=== PATIENT | male | born 1955 | race Caucasian/White ===

== ENCOUNTER 2024-06-25 09:46 | Observation (INO) ==
[2024-06-25 12:54] LABS: Hemoglobin 7.5 g/dl (14.0-18.0); Mean Corpuscular Hemoglobin 26.6 pg (25.0-34.0); Mean Corpuscular Hgb Conc 31.3 g/dL (32.0-36.0); Mean Corpuscular Volume 85.1 fL (80.0-100.0); Nucleated RBC # (auto) 0.14 K/uL (0.00-0.12); Nucleated RBC % (auto) 0.7 %; Platelet Count 96 K/uL (130-400); RDW Coefficient of Variation 19.5 % (11.5-14.5); RDW Standard Deviation 58.1 fL (36.4-46.3); Red Blood Count 2.82 M/uL (4.70-6.10); White Blood Count 18.74 K/ul (4.8-10.8)
[2024-06-25 13:10] LABS: Anisocytosis Present; Basophils # (auto) 0.04 K/uL (0.00-0.20); Basophils % (auto) 0.2 %; Dohle Bodies 1+; Eosinophils # (auto) 0.01 K/uL (0.00-0.50); Eosinophils % (auto) 0.1 %; Hypochromasia Present; Immature Granulocytes # (auto) 0.61 K/uL (0.01-0.20); Immature Granulocytes % (auto) 3.3 %; Lymphocytes # (auto) 1.32 K/uL (1.20-3.40); Monocytes # (auto) 1.23 K/uL (0.11-0.59); Monocytes % (auto) 6.6 %; Neutrophils # (auto) 15.53 K/uL (1.40-6.50); Neutrophils % (auto) 82.8 %; Polychromasia 1+; Schistocytes 1+
[2024-06-25] MEDS ORDERED: SODIUM CHLORIDE 0.9% 100 ML IV PRN ×2 (13:31→21:29)
[2024-06-25] MEDS ORDERED: SODIUM CHLORIDE 0.9% 50 ML IV PRN ×2 (13:31→21:29)
--- NOTE | 2024-06-25 13:52 | History & Physical Report ---
Date of Service June 25, 2024 Assessment & Plan (1) Recurrent epistaxis: (2) Acute blood loss anemia: (3) Esophageal cancer: (4) Atrial fibrillation with RVR: Tyson Green is a 68-year-old male with PMH of recurrent epistaxis, COPD, and esophageal cancer. He presented on 06/25 for ongoing nosebleed that originally started on Sunday 06/18. He was seen at [facility] that Tuesday 06/20 and had a Rhino Rocket placed, he was then seen by ENT on Thursday 06/22 and had silver nitrate without it stopping. Patient was fine over the weekend, however he sneezed upon waking this morning, and nosebleed returned. #Epistaxis/acute blood loss anemia Right nasal passage was packed in the ED, and patient reports he is no active bleeding at time of admission Augmentin x 1 given in the ED Hgb 7.5 on arrival 1 unit PRBCs ordered, transfused Trend H&H Otolaryngology consult appreciated #Leukocytosis WBC count elevated to 18.74 on arrival Clinically, patient denies infectious symptoms Suspect this is due to recent Neulasta Continue to trend #Esophageal cancer Patient follows with [facility] Last chemo on 06/12, per patient Oncology consult appreciated #New onset A-fib with RVR TSH and Mag ordered, pending Echocardiogram ordered, pending Metoprolol 5 mg IV on-call PRN for HR >130bpm Continue home metoprolol Note: Patient reports that he has been taking 25 mg daily, despite being told to take half tablets (12.5 mg) daily Hold metoprolol succinate for now Metoprolol tartrate 25mg p.o. q6h for now Will defer blood thinners in the setting of acute blood loss anemia Continuous telemetry monitoring #Tobacco use Current everyday tobacco cigarette smoker; 1 PPD Nicotine patch while inpatient Disposition: Admit to PCU telemetry Full code Regular diet VTE PPx: SCDs; hold chemical DVT PPx in the setting of acute blood loss anemia/nosebleed History of Present Illness Chief Complaint: Nosebleed Primary Care Provider: Lauri López MD Peter is a 68-year-old male with PMH of recurrent epistaxis, COPD, and esophageal cancer. He presented on 06/25 for ongoing nosebleed that originally started on Sunday 06/18. He was seen at [facility] that Tuesday 06/20 and had a Rhino Rocket placed, he was then seen by ENT on Thursday 06/22 and had silver nitrate without it stopping. Patient was fine over the weekend, however he sneezed upon waking this morning, and nosebleed returned. In terms of symptoms, he endorses a "pounding" headache secondary to the nosebleed, as well as dizziness when walking around. [facility] and is currently undergoing chemotherapy for his esophageal cancer; he reports his last chemotherapy session was on 06/12. Patient did not take his regular morning medicine today; no recent change in medications. He manages his own medicine at home. He takes tramadol and gabapentin daily for lower back pain and ankle pain secondary to rheumatoid arthritis. He does have a history of blood transfusion in March 2023. He is not currently on blood thinners. He has been told he had an "irregular" heartbeat in the past, but is unsure if he has any history of atrial fibrillation. No PMH of GI bleeds or bleeding disorders to his knowledge. Patient is a former [employer]. He is a current everyday tobacco cigarette smoker; 1 PPD. He denies chewing tobacco or recent alcohol use. Patient is tachycardic at 125 bpm at time admission; vitals o therwise stable. ED course: 1 unit PRBCs ordered for transfusion NSS 100 mL IV ROS: Patient endorses nosebleed, dizziness, cold intolerance, headache, and melena. Patient denies fever, chills, night-sweats, rashes, bruises, chest pain, chest palpitations, SOB, pleuritic CP, abdominal pain, N/V, burning with urination, or BRB in the urine/stool. Allergies Allergy/AdvReac Type Severity Reaction Status Date / Time No Known Drug Allergies Allergy Verified 06/25/24 14:47 Home Medications Medication Instructions Recorded Confirmed Type alfuzosin 10 mg tablet,extended 0 mg PO BID 02/17/24 06/25/24 History release 24 hr ferrous sulfate 325 mg (65 mg 325 mg PO DAILY 02/17/24 06/25/24 History iron) tablet (Iron (ferrous sulfate)) metoprolol succinate 25 mg 0 mg PO QAM 02/17/24 06/25/24 History tablet,extended release 24 hr prednisone 2.5 mg tablet 2.5 - 5 mg PO UD 02/17/24 06/25/24 History tadalafil 10 mg tablet 10 mg PO HS 02/17/24 06/25/24 History tenofovir disoproxil fumarate 300 300 mg PO HS 02/17/24 06/25/24 History mg tablet tizanidine 6 mg capsule 6 mg PO TID PRN muscle spasms 02/17/24 06/25/24 History tramadol 50 mg tablet 50 mg PO Q6H PRN Pain 02/17/24 06/25/24 History folic acid 1 mg tablet 1 mg PO DAILY 05/02/24 06/25/24 History cholecalciferol (vitamin D3) 25 25 mcg PO DAILY 06/25/24 06/25/24 History mcg (1,000 unit) tablet (Vitamin D3) lorazepam 0.5 mg tablet 0.25 - 5 mg PO Q6H PRN 06/25/24 06/25/24 History Anxiety/Panic/Insomnia ondansetron HCl 8 mg tablet 8 mg PO TID PRN Nausea And Vomiting 06/25/24 06/25/24 History sertraline 50 mg tablet 50 mg PO DAILY 06/25/24 06/25/24 History Past Med/Surg History Problem List (Updated 06/25/24 @ 18:33 by Reuben Hagan MD) Atrial fibrillation with RVR (Acute) Acute blood loss anemia (Acute) Recurrent epistaxis (Acute) Smoker Stage 3 severe COPD by GOLD classification Back problem Esophageal cancer (Acute) Medical History Esophageal cancer reccurence Degenerative joint disease of knee, left History of hepatitis B (2019) Hx of hepatitis C (2019) treated and cleared Chronic back pain 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 BPH (benign prostatic hyperplasia) COPD (chronic obstructive pulmonary disease) "extremely mild" no symptoms Hx of esophageal malignancy (2022) 3 rounds of chemo, and 4-5 weeks of xrt Cardiac arrhythmia no symptoms, unsure of what type, no inhalation therapy aide- had stress test Hypertension Psoriatic arthritis Rheumatoid arthritis Surgical History Port-A-Cath in place (05/08/24) Access Port Insertion Left Subclavian with Fluoroscopy(Left) - Antonio Hylton, DO Spermatocele (2018) Hx of esophagogastroduodenoscopy 02/2024 [facility] Hx of colonoscopy (2022) History of surgery (2019) spermatocele removed, [facility] surgeon "botched" surgery and complications post op including extreme scrotal swelling Hx of removal of cyst fatty cyst at ear canal Hx of shoulder surgery (1970) left arm, while in service Hx of appendectomy (1967) age 12, " on the operating table- addendix burst while they were doing the surgery" required a return to surgery 2 weeks later Family History Sister Breast cancer Brother Cancer Pancreatic cancer Grandmother Colorectal cancer Social History Smoking Status: Current every day smoker Tobacco Type: Cigarettes Cigarettes Per Day: 1 ppd (advised); Second Hand Exposure: Yes; Do You Dip or Chew Tobacco: No; Tobacco Cessation Education Requested by Patient: No 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) Hx Substance Use: Yes Last Used Substance: Days (ago) Last Used Substance Other:: Marijuana Substance Use Type Other:: still uses marijuana Preferred Language: Micronesian Communication Ability: Effective Cake Decorator Required: No Beliefs That Will Affect Care: None marital status: Current Living Situation: Spouse current occupational status: retired and disabled How many Children do You have: 3 Other Information That Helps Us Care for You: No Feels Safe at Home: Yes Safety Concerns: Feels Safe At This Time during the past year weight has: decreased > 10 lbs Assistive Devices: Cane Review of Systems Review of Systems: See HPI above Physical Exam Physical Exam: General: no acute distress; at bedside; non-toxic appearing; cachectic; SpO2 98% on RA HEENT: normocephalic, atraumatic; no scleral icterus; PERRLA; vision and hearing grossly intact Nose: Nasal packing in place with dried blood noted Neck: supple; no lymphadenopathy; trachea midline Skin: warm, dry without signs of tenting; no cyanosis; no rashes, bruising, lesions, or erythema noted CV: chest wall NTP; irregularly irregular rhythm at 130 bpm; S1/S2 normal; no murmurs/rubs/gallops; pulses intact and symmetric at radial, DP, and PT Lungs: no acute respiratory distress; symmetrical chest wall expansion; mild expiratory wheeze in the lower lung peres bilaterally ABD: Soft, NTP; BS present; no rebound/guarding; no distention MSK: no tics or fasciculations; no edema noted in the LEs b/l, nonerythematous Neuro: A&Ox3; normal mood and affect; fluent speech; no focal deficits; sensation grossly intact in the LEs b/l Results & Data Results & Data Vital Signs (Past 12 Hours) Vital Signs Temp Pulse Resp BP Pulse Ox O2 Del Method 06/25/24 09:58 36.5 C 125 H 24 108/69 98 Room Air Laboratory Results Abnormal lab results 06/25/24 Range/Units 12:24 WBC 18.74 H (4.8-10.8) K/ul RBC 2.82 L (4.70-6.10) M/uL Hgb 7.5 L (14.0-18.0) g/dl Hct 24.0 L (42.0-52.0) % MCHC 31.3 L (32.0-36.0) g/dL RDW Std Deviation 58.1 H (36.4-46.3) fL RDW Coeff of Latha 19.5 H (11.5-14.5) % Plt Count 96 L (130-400) K/uL Neut # (Auto) 15.53 H (1.40-6.50) K/uL Owsley # (Auto) 1.23 H (0.11-0.59) K/uL Immature Gran # (Auto) 0.61 H (0.01-0.20) K/uL Absolute Nucleated RBC 0.14 H (0.00-0.12) K/uL Code Status & VTE Plan Code Status Full code VTE Prophylaxis Plan VTE Prophylaxis will be ordered: Yes Supervising Physician Co-Signing Physician Notes I personally saw and examined the patient. I independently reviewed the labs, EKG, imaging, problem list, medication list, past medical history and family history. I verified all laguerre points and agree with Dylan Ward PA-C with the following exceptions and/or additions: 68 year old male presents to the ER with a nose bleed, recurrent after prior cauterization as outpatient O/E HS irregular rhythm, increased rate, no murmur, Chest CTAB, Abdo SNT, rhinorocket in nose A/P New onset a. fib RVR - TTE, TSH, aim Mg > 2, K > 4, increase metoprolol to 25mg PO q6h, patient still significantly tachycardic following this as BP 98/60 therefore started on digoxin 250mcg IV q6h for three doses followed by 125mcg PO daily, unable to anticoagulate due to epistaxis Epistaxis - consult ENT, given his chemotherapy and symptomatic would aim for hemoglobin higher than usual > 8 PG Care Time/CCT Total # of Minutes Spent Total Time Spent with Patient: Total time spent is greater than 50% in coordination of care (as documented) at patient's floor/unit and/or counseling patient: Coding [place] [address] INT INP/OBS CARE 3/75MIN Patient Type Established Medical Decision Making High Complexity Diagnoses Recurrent epistaxis R04.0 Acute blood loss anemia D62 Esophageal cancer C15.9 Atrial fibrillation with RVR I48.91
[2024-06-25] MEDS: METOPROLOL TARTRATE 1 MG/ML VIAL IV STA ×2 (13:59→16:23)
[2024-06-25] MEDS: AMOXICILLIN/CLAVULANATE 875 MG TAB PO ONE (15:10)
[2024-06-25 15:21] LABS: INR 1.1 (0.9-1.1); Partial Thromboplastin Time 28 Seconds (21-31); Prothrombin Time 12.1 Seconds (9.0-12.0)
[2024-06-25] MEDS ORDERED: ACETAMINOPHEN 325 MG TAB PO PRN (15:34)
[2024-06-25] MEDS ORDERED: ONDANSETRON INJ 2 MG/ML 2 ML VIAL IV PRN (15:34)
[2024-06-25] MEDS: traMADol HCL 50 MG TABLET PO PRN (16:03)
[2024-06-25] MEDS: METOPROLOL TARTRATE 1 MG/ML VIAL IV PRN (16:05)
--- NOTE | 2024-06-25 16:40 | Oncology Consultation ---
Date of Consultation June 25, 2024 Assessment & Plan (1) Acute blood loss anemia: (2) Recurrent epistaxis: (3) Atrial fibrillation with RVR: Plan -Anemia likely multifactorial due to chemotherapy treatment as well as epistaxis. Will obtain anemia labs including iron studies, B12, folate level to evaluate for nutritional causes -Transfuse with 1 unit PRBC -Epistaxis management per ENT -Outpatient follow-up upon discharge from hospital. Will discuss at that time if patient wants to continue with systemic therapy Thank you for this consult. Oncology will follow peripherally. Please feel free to call if you have any further questions. History of Present Illness Reason for Consultation: Anemia, esophageal cancer Attending Physician: Brent Stewart MD History of Present Illness 68-year-old gentleman with metastatic esophageal cancer currently on FOLFOX plus trastuzumab admitted to [facility] for anemia after presenting to the ER with epistaxis. Labs revealed hemoglobin of 7.5 with hematocrit of 24.0. Has had recurrent epistaxis and underwent nasal cautery on 06/21/2024. Allergies Allergy/AdvReac Type Severity Reaction Status Date / Time No Known Drug Allergies Allergy Verified 06/25/24 14:47 Home Medications Medication Instructions Recorded Confirmed Type alfuzosin 10 mg tablet,extended 0 mg PO BID 02/17/24 06/25/24 History release 24 hr ferrous sulfate 325 mg (65 mg 325 mg PO DAILY 02/17/24 06/25/24 History iron) tablet (Iron (ferrous sulfate)) metoprolol succinate 25 mg 0 mg PO QAM 02/17/24 06/25/24 History tablet,extended release 24 hr prednisone 2.5 mg tablet 2.5 - 5 mg PO UD 02/17/24 06/25/24 History tadalafil 10 mg tablet 10 mg PO HS 02/17/24 06/25/24 History tenofovir disoproxil fumarate 300 300 mg PO HS 02/17/24 06/25/24 History mg tablet tizanidine 6 mg capsule 6 mg PO TID PRN muscle spasms 02/17/24 06/25/24 History tramadol 50 mg tablet 50 mg PO Q6H PRN Pain 02/17/24 06/25/24 History folic acid 1 mg tablet 1 mg PO DAILY 05/02/24 06/25/24 History cholecalciferol (vitamin D3) 25 25 mcg PO DAILY 06/25/24 06/25/24 History mcg (1,000 unit) tablet (Vitamin D3) lorazepam 0.5 mg tablet 0.25 - 5 mg PO Q6H PRN 06/25/24 06/25/24 History Anxiety/Panic/Insomnia ondansetron HCl 8 mg tablet 8 mg PO TID PRN Nausea And Vomiting 06/25/24 06/25/24 History sertraline 50 mg tablet 50 mg PO DAILY 06/25/24 06/25/24 History Patient History Medical History (Updated 06/25/24 @ 14:25 by Dylan Ward PA-C) Esophageal cancer reccurence Degenerative joint disease of knee, left History of hepatitis B (2019) Hx of hepatitis C (2019) treated and cleared Chronic back pain 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 BPH (benign prostatic hyperplasia) COPD (chronic obstructive pulmonary disease) "extremely mild" no symptoms Hx of esophageal malignancy (2022) 3 rounds of chemo, and 4-5 weeks of xrt Cardiac arrhythmia no symptoms, unsure of what type, no real estate assessor- had stress test Hypertension Psoriatic arthritis Rheumatoid arthritis Surgical History (Updated 05/08/24 @ 10:41 by Elana Enriquez RN) Port-A-Cath in place (05/08/24) Access Port Insertion Left Subclavian with Fluoroscopy(Left) - Antonio Hylton, Spermatocele (2018) Hx of esophagogastroduodenoscopy 02/2024 [facility] Hx of colonoscopy (2022) History of surgery (2019) spermatocele removed, [facility] surgeon "botched" surgery and complications post op including extreme scrotal swelling Hx of removal of cyst fatty cyst at ear canal Hx of shoulder surgery (1970) left arm, while in service Hx of appendectomy (1967) age 12, " on the operating table- addendix burst while they were doing the surgery" required a return to surgery 2 weeks later Family History Sister Breast cancer Brother Cancer Pancreatic cancer Grandmother Colorectal cancer Social History Smoking Status: Current every day smoker Tobacco Type: Cigarettes Cigarettes Per Day: 1 ppd (advised); Second Hand Exposure: Yes; Do You Dip or Chew Tobacco: No; Tobacco Cessation Education Requested by Patient: No 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) Hx Substance Use: Yes Last Used Substance: Days (ago) Last Used Substance Other:: Marijuana Substance Use Type Other:: still uses marijuana Preferred Language: Croatian Communication Ability: Effective Chief Cardiopulmonary Technologist Required: No Beliefs That Will Affect Care: None marital status: Current Living Situation: Spouse current occupational status: retired and disabled How many Children do You have: 3 Other Information That Helps Us Care for You: No Feels Safe at Home: Yes Safety Concerns: Feels Safe At This Time during the past year weight has: decreased > 10 lbs Assistive Devices: Cane Results & Data Vital Signs (Past 12 Hours) Vital Signs Temp Pulse Pulse Resp BP BP Pulse Ox 06/25/24 16:24 36.4 C L 141 H 16 109/61 91 06/25/24 16:23 141 H 109/61 06/25/24 16:05 163 H 118/70 06/25/24 15:35 36.7 C 92 H 18 118/70 96 06/25/24 14:30 125 H 24 123/79 96 06/25/24 13:59 142 H 132/111 H 06/25/24 13:56 159 H 06/25/24 13:46 169 H 26 H 113/71 98 06/25/24 09:58 36.5 C 125 H 24 108/69 98 O2 Del Method 06/25/24 16:24 06/25/24 16:23 06/25/24 16:05 06/25/24 15:35 Room Air 06/25/24 14:30 Room Air 06/25/24 13:59 06/25/24 13:56 06/25/24 13:46 Room Air 06/25/24 09:58 Room Air
[2024-06-25 16:42] LABS: Magnesium 1.9 mg/dl (1.7-2.4)
[2024-06-25] MEDS: METOPROLOL SUCC 25MG EXT REL TAB PO SCH (16:55)
[2024-06-25 17:05] LABS: Thyroid Stimulating Hormone 1.286 uIu/ml (0.300-4.500)
[2024-06-25] MEDS: METOPROLOL TARTRATE 25 MG TAB PO SCH (17:07)
--- NOTE | 2024-06-25 18:33 | Emergency Department Note ---
History of Present Illness General Chief complaint: Nose Bleed (Minor) Stated complaint: NOSE BLEED Time Seen by Provider: 06/25/24 11:03 History of Present Illness Provider Complaint: + epistaxis Location: + right nostril Onset (ago): 1 day(s) Duration: + constant Maximum Pain Intensity: 8 Context: + history of previous Associated symptoms: no fever, no headache or no sinus pain Treatment prior to arrival: + stuffed nose with tissue HPI Narrative: Patient states that he was seen at [facility] and stayed overnight but they wanted to send him to [place] so he left. Patient states he saw ENT in the clinic at [facility] and had a cauterization done with silver nitrate. Patient states that did not help and he started bleeding and today and is requesting that a "laser be used to stop the bleeding". Patient is currently on chemotherapy through [facility] oncology. Home Medications Medication Instructions Recorded Confirmed Type alfuzosin 10 mg tablet,extended 0 mg PO BID 02/17/24 06/25/24 History release 24 hr ferrous sulfate 325 mg (65 mg 325 mg PO DAILY 02/17/24 06/25/24 History iron) tablet (Iron (ferrous sulfate)) metoprolol succinate 25 mg 0 mg PO QAM 02/17/24 06/25/24 History tablet,extended release 24 hr prednisone 2.5 mg tablet 2.5 - 5 mg PO UD 02/17/24 06/25/24 History tadalafil 10 mg tablet 10 mg PO HS 02/17/24 06/25/24 History tenofovir disoproxil fumarate 300 300 mg PO HS 02/17/24 06/25/24 History mg tablet tizanidine 6 mg capsule 6 mg PO TID PRN muscle spasms 02/17/24 06/25/24 History tramadol 50 mg tablet 50 mg PO Q6H PRN Pain 02/17/24 06/25/24 History folic acid 1 mg tablet 1 mg PO DAILY 05/02/24 06/25/24 History cholecalciferol (vitamin D3) 25 25 mcg PO DAILY 06/25/24 06/25/24 History mcg (1,000 unit) tablet (Vitamin D3) lorazepam 0.5 mg tablet 0.25 - 5 mg PO Q6H PRN 06/25/24 06/25/24 History Anxiety/Panic/Insomnia ondansetron HCl 8 mg tablet 8 mg PO TID PRN Nausea And Vomiting 06/25/24 06/25/24 History sertraline 50 mg tablet 50 mg PO DAILY 06/25/24 06/25/24 History Allergies Allergy/AdvReac Type Severity Reaction Status Date / Time No Known Drug Allergies Allergy Verified 06/25/24 14:47 Past Med/Surg History Problem List (Updated 06/25/24 @ 18:33 by Reuben Hagan MD) Atrial fibrillation with RVR (Acute) Acute blood loss anemia (Acute) Recurrent epistaxis (Acute) Smoker Stage 3 severe COPD by GOLD classification Back problem Esophageal cancer (Acute) Medical History Esophageal cancer reccurence Degenerative joint disease of knee, left History of hepatitis B (2019) Hx of hepatitis C (2019) treated and cleared Chronic back pain 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 BPH (benign prostatic hyperplasia) COPD (chronic obstructive pulmonary disease) "extremely mild" no symptoms Hx of esophageal malignancy (2022) 3 rounds of chemo, and 4-5 weeks of xrt Cardiac arrhythmia no symptoms, unsure of what type, 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 Hypertension Psoriatic arthritis Rheumatoid arthritis Surgical History Port-A-Cath in place (05/08/24) Access Port Insertion Left Subclavian with Fluoroscopy(Left) - Antonio Hylton, Spermatocele (2018) Hx of esophagogastroduodenoscopy 02/2024 [facility] Hx of colonoscopy (2022) History of surgery (2019) spermatocele removed, [facility] surgeon "botched" surgery and complications post op including extreme scrotal swelling Hx of removal of cyst fatty cyst at ear canal Hx of shoulder surgery (1970) left arm, while in service Hx of appendectomy (1967) age 12, " on the operating table- addendix burst while they were doing the surgery" required a return to surgery 2 weeks later Family History Sister Breast cancer Brother Cancer Pancreatic cancer Grandmother Colorectal cancer Social History Smoking Status: Current every day smoker Tobacco Type: Cigarettes Cigarettes Per Day: 1 ppd (advised); Second Hand Exposure: Yes; Do You Dip or Chew Tobacco: No; Tobacco Cessation Education Requested by Patient: No 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) Hx Substance Use: Yes Last Used Substance: Days (ago) Last Used Substance Other:: Marijuana Substance Use Type Other:: still uses marijuana Preferred Language: Sri Lankan Communication Ability: Effective 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 Beliefs That Will Affect Care: None marital status: Current Living Situation: Spouse current occupational status: retired and disabled How many Children do You have: 3 Other Information That Helps Us Care for You: No Feels Safe at Home: Yes Safety Concerns: Feels Safe At This Time during the past year weight has: decreased > 10 lbs Assistive Devices: Cane Physical Exam 2 Vital Signs: Vital Signs - 24 hr 06/25/24 09:58 06/25/24 13:46 06/25/24 13:56 Temperature 36.5 C Temperature Source Oral Pulse Rate 125 H 159 H Pulse Rate [Apical ] 169 H Pulse Rhythm [Apic al] Irregular Pulse Strength [Ap ical] Normal Respiratory Rate 24 26 H Respiratory Effort / Characteristics Labored Respiratory Depth Shallow Respiratory Patter n Tachypnea Blood Pressure 108/69 Blood Pressure [Ri ght Arm] 113/71 Blood Pressure Rubia n 82 Blood Pressure Rubia n [Right Arm] 85 Blood Pressure Pos ition Sitting Blood Pressure Pos ition [Right Arm] Lying Pulse Oximetry 98 98 Oxygen Delivery Me thod Room Air Room Air Sepsis Recent Feve r Within 48 Hours No Sepsis New/Unexpla ined Change in Men danelle Status No Sepsis Action Take n by Nursing No Action Required 06/25/24 13:59 Temperature Temperature Source Pulse Rate 142 H Pulse Rate [Apical ] Pulse Rhythm [Apic al] Pulse Strength [Ap ical] Respiratory Rate Respiratory Effort / Characteristics Respiratory Depth Respiratory Patter n Blood Pressure 132/111 H Blood Pressure [Ri ght Arm] Blood Pressure Rubia n Blood Pressure Rubia n [Right Arm] Blood Pressure Pos ition Blood Pressure Pos ition [Right Arm] Pulse Oximetry Oxygen Delivery Me thod Sepsis Recent Feve r Within 48 Hours Sepsis New/Unexpla ined Change in Men danelle Status Sepsis Action Take n by Nursing Physical Exam: Physical Exam HENT: Exam performed. - Head: Normocephalic and atraumatic. - Right Ear: External ear normal. No mastoid erythema - Left Ear: External ear normal. No mastoid erythema - Nose: Bleeding from the right nare. - Mouth/Throat: The oropharynx is clear and moist. No trismus in the jaw. No dental abscesses or uvula swelling. No oropharyngeal exudate or tonsillar abscesses. No blood in the oropharynx. EYES: Conjunctivae and EOM are normal. Pupils are equal, round, and reactive to light. Right eye exhibits no discharge. Left eye exhibits no discharge. No scleral icterus. CV: Normal rate, irregular rhythm, normal heart sounds and intact distal pulses. There is no peripheral edema. Palpable radial pulses bue. PULM/CHEST: Effort normal and breath sounds normal. No respiratory distress. No stridor. He has no wheezes. He has no rales. NEURO: He is alert and oriented to person, place, and time. He has normal strength. No cranial nerve deficit or sensory deficit. Coordination and gait normal. GCS eye subscore is 4. GCS verbal subscore is 5. GCS motor subscore is 6. Cerebellar tests wnl. Procedures Epistaxis Control Nostril: right Direct Inspection: yes Clots Removed by: blowing nose Device Inserted: hemostatic balloon Patient Tolerated Procedure: well and no complications Course Course 1103: The patient was evaluated in room D3. A complete history and physical exam was performed Cardiac monitoring: An order was placed for continuous cardiac monitoring. The monitor shows a rate of 100 with atrial fibrilation rhythm interpreted by me 1225: Vital signs stable. Patient's epistaxis was stopped with Rhino Rocket insertion. See procedure note. Will check labs. 1400: Patient became tachycardic in the emergency department. Patient found to be in A-fib RVR. Patient states he did not take his home dose of metoprolol this morning. IV metoprolol ordered for the patient. Patient's labs show hemoglobin 7.5. Leukocytosis of 18. Discussed case with Dr. Cox patient's oncologist. States patient should be transfused 1 unit packed red blood cells. She states her leukocytosis is due to recent Lunesta administration. Dr. Jackson on-call ENT agreed to be on consult while the patient was admitted. Administered Medications Metoprolol Tartrate (Metoprolol Tartrate 25 Mg Tab) 25 mg PO Q6 DEVON Stop: 07/25/24 16:44 Last Admin: 06/25/24 17:07 Dose: 25 mg Documented By: FRANCISCA Tramadol HCl (Tramadol Hcl 50 Mg Tablet) 50 mg PO Q6H PRN PRN Reason: Pain Stop: 07/25/24 15:33 Last Admin: 06/25/24 16:03 Dose: 50 mg Documented By: MALENA Discontinued Medications Amoxicillin/Clavulanate Potassium (Amoxicillin/Clavulanate 875 Mg Tab) 1 tab PO NOW ONE; Protocol Stop: 06/25/24 14:54 Last Admin: 06/25/24 15:10 Dose: 1 tab Documented By: RAINE Metoprolol Succinate (Metoprolol Succ 25mg Ext Rel Tab) 25 mg PO QAM DEVON Stop: 06/25/24 20:59 Last Admin: 06/25/24 16:55 Dose: Not Given Documented By: FRANCISCA Metoprolol Tartrate (Metoprolol Tartrate 1 Mg/Ml Vial) 5 mg IV NOW STA Stop: 06/25/24 13:54 Last Admin: 06/25/24 13:59 Dose: 5 mg Documented By: LINDA Metoprolol Tartrate (Metoprolol Tartrate 1 Mg/Ml Vial) 5 mg IV Q6H PRN PRN Reason: A fib w/ RVR >130bpm Last Admin: 06/25/24 16:05 Dose: 5 mg Documented By: MALENA Metoprolol Tartrate (Metoprolol Tartrate 1 Mg/Ml Vial) 5 mg IV NOW STA Stop: 06/25/24 16:19 Last Admin: 06/25/24 16:23 Dose: 5 mg Documented By: FRANCISCA Medical Decision Making Laboratory Data Attestation: I reviewed the patient's lab results. 06/25/24 12:24 Lab Results 06/25/24 Range/Units 12:24 WBC 18.74 H (4.8-10.8) K/ul RBC 2.82 L (4.70-6.10) M/uL Hgb 7.5 L (14.0-18.0) g/dl Hct 24.0 L (42.0-52.0) % MCV 85.1 (80.0-100.0) fL MCH 26.6 (25.0-34.0) pg MCHC 31.3 L (32.0-36.0) g/dL RDW Std Deviation 58.1 H (36.4-46.3) fL RDW Coeff of Latha 19.5 H (11.5-14.5) % Plt Count 96 L (130-400) K/uL Immature Gran % (Auto) 3.3 % Neut % (Auto) 82.8 % Lymph % (Auto) 7.0 % [place] % (Auto) 6.6 % Eos % (Auto) 0.1 % Baso % (Auto) 0.2 % Neut # (Auto) 15.53 H (1.40-6.50) K/uL Lymph # (Auto) 1.32 (1.20-3.40) K/uL [place] # (Auto) 1.23 H (0.11-0.59) K/uL Eos # (Auto) 0.01 (0.00-0.50) K/uL Baso # (Auto) 0.04 (0.00-0.20) K/uL Immature Gran # (Auto) 0.61 H (0.01-0.20) K/uL Absolute Nucleated RBC 0.14 H (0.00-0.12) K/uL Nucleated RBC % (auto) 0.7 % Dohle Bodies 1+ Polychromasia 1+ Hypochromasia Present Anisocytosis Present Schistocytes 1+ ECG Data Attestation: I personally reviewed and interpreted this ECG as follows: Additional Comments: EKG #1 at 1401: Atrial fibrillation with rate 141. QRS and QTc intervals within normal limits. No ST elevation or ST depression. EKG #2 at 1439 status post metoprolol 5 mg IV push: Atrial fibrillation with rate of 118. QRS and QTc intervals within normal limits. No ST elevation or ST depression [facility] Narrative 1103: The patient was evaluated in room D3. A complete history and physical exam was performed Cardiac monitoring: An order was placed for continuous cardiac monitoring. The monitor shows a rate of 100 with atrial fibrilation rhythm interpreted by me 1225: Vital signs stable. Patient's epistaxis was stopped with Rhino Rocket insertion. See procedure note. Will check labs. 1400: Patient became tachycardic in the emergency department. Patient found to be in A-fib RVR. Patient states he did not take his home dose of metoprolol this morning. IV metoprolol ordered for the patient. Patient's labs show hemoglobin 7.5. Leukocytosis of 18. Discussed case with Dr. Cox patient's oncologist. States patient should be transfused 1 unit packed red blood cells. She states her leukocytosis is due to recent Lunesta administration. Dr. Jackson on-call ENT agreed to be on consult while the patient was admitted. Impression & Plan Recurrent epistaxis, Atrial fibrillation with RVR, Acute blood loss anemia, Esophageal cancer Critical Care Time Critical Care Time: Yes Total Critical Care Time: 36 I have personally spent greater than 36 minutes of critical care time in the direct management of this patient. This includes bedside care, interpretation of diagnostic studies, and testing, discussion with consultants, patient, and family members, and other required patient management activities. This 36 minutes is in excess of all separately billable procedures. Discharge Plan Visit Data Chief Complaint: Nose Bleed (Minor) Stated Complaint: NOSE BLEED ED Provider: Reuben Hagan Discharge Problem: Recurrent epistaxis, Atrial fibrillation with RVR, Acute blood loss anemia, Esophageal cancer Patient Disposition: Admitted As Inpatient Discharge Instructions Interventions: ED Discharge Assessment Last Done: 06/25/24 15:06
[2024-06-25] MEDS: DIGOXIN 250 MCG in SYRINGE 9 ML IV STA (18:40)
[2024-06-25 19:11] LABS: BUN Creatinine Ratio 18.9 (10-20); Bilirubin,Total 0.5 mg/dl (0.2-1.0); Calcium 7.7 mg/dl (8.6-10.3); Creatinine Clr Calc Pharmacy 71.4 ml/min
[2024-06-25 19:31] LABS: Ferritin 678.5 ng/ml (8-388)
[2024-06-25 20:26] LABS: Hematocrit (blood only) 24.3 % (42.0-52.0); Hemoglobin 7.8 g/dl (14.0-18.0)
[2024-06-25 20:52] LABS: Folate (Folic Acid),Ser orPlas 22.06 ng/ml (>5.38)
[2024-06-25 20:53] LABS: Vitamin B12 > 1500 pg/ml (180-914)
[2024-06-25] MEDS: POTASSIUM CHLORIDE CRTAB 20 MEQ TABCR PO STA (22:31)
[2024-06-26] MEDS: DIGOXIN 250 MCG in SYRINGE 9 ML IV ONE ×2 (00:23→05:58)
[2024-06-26] MEDS: LORazepam 0.5 MG TAB PO PRN (00:40)
[2024-06-26 02:04] LABS: Hemoglobin 8.6 g/dl (14.0-18.0)
[2024-06-26 08:23] LABS: BUN Creatinine Ratio 19.3 (10-20); Calcium 7.7 mg/dl (8.6-10.3); Creatinine Clr Calc Pharmacy 77.4 ml/min; Potassium 3.6 mmol/L (3.5-5.1)
[2024-06-26 08:24] LABS: INR 1.2 (0.9-1.1); Prothrombin Time 12.5 Seconds (9.0-12.0)
[2024-06-26 08:26] LABS: Hematocrit (blood only) 27.3 % (42.0-52.0); Hemoglobin 8.7 g/dl (14.0-18.0); Mean Corpuscular Hgb Conc 31.9 g/dL (32.0-36.0); Mean Corpuscular Volume 84.8 fL (80.0-100.0); Nucleated RBC # (auto) 0.15 K/uL (0.00-0.12); Nucleated RBC % (auto) 0.9 %; Platelet Count 120 K/uL (130-400); RDW Coefficient of Variation 20.6 % (11.5-14.5); RDW Standard Deviation 59.8 fL (36.4-46.3); Red Blood Count 3.22 M/uL (4.70-6.10)
[2024-06-26 08:27] LABS: Anisocytosis Present; Basophils # (auto) 0.04 K/uL (0.00-0.20); Basophils % (auto) 0.2 %; Dohle Bodies 1+; Eosinophils # (auto) 0.02 K/uL (0.00-0.50); Eosinophils % (auto) 0.1 %; Immature Granulocytes # (auto) 0.54 K/uL (0.01-0.20); Immature Granulocytes % (auto) 3.1 %; Lymphocytes # (auto) 1.49 K/uL (1.20-3.40); Lymphocytes % (auto) 8.6 %; Monocytes # (auto) 1.25 K/uL (0.11-0.59); Monocytes % (auto) 7.2 %; Neutrophils # (auto) 14.06 K/uL (1.40-6.50); Neutrophils % (auto) 80.8 %; Polychromasia 1+
--- NOTE | 2024-06-26 08:43 | ENT Consultation ---
Date of Consultation June 26, 2024 Assessment & Plan (1) Recurrent epistaxis: Given multiple treatments already by ENT without resolution. Plan for endoscopic control of epistaxis in the OR. The risks of bleeding, infection, perforation and/or need for further surgery discussed. (2) Smoker: (3) Stage 3 severe COPD by GOLD classification: (4) Acute blood loss anemia: History of Present Illness Reason for Consultation: Right epistaxis Attending Physician: Brent Bradford MD History of Present Illness 68 year old male with right epistaxis. He as been seen by multiple ENT doctors with cauterization and packing without resolution. He is not on anticoaguation. Per ER note: Patient states that he was seen at [facility] ER and stayed overnight but they wanted to send him to [place] so he left. Patient states he saw ENT in the clinic at [facility] and had a cauterization done with silver nitrate. Patient states that did not help and he started bleeding and today and is requesting that a "laser be used to stop the bleeding". Patient is currently on chemotherapy through [facility] oncology. Patient uses chemotherapy for esophageal cancer. He has COPD and is a current smoker. Allergies Allergy/AdvReac Type Severity Reaction Status Date / Time No Known Drug Allergies Allergy Verified 06/25/24 14:47 Home Medications Medication Instructions Recorded Confirmed Type alfuzosin 10 mg tablet,extended 0 mg PO BID 02/17/24 06/25/24 History release 24 hr ferrous sulfate 325 mg (65 mg 325 mg PO DAILY 02/17/24 06/25/24 History iron) tablet (Iron (ferrous sulfate)) metoprolol succinate 25 mg 0 mg PO QAM 02/17/24 06/25/24 History tablet,extended release 24 hr prednisone 2.5 mg tablet 2.5 - 5 mg PO UD 02/17/24 06/25/24 History tadalafil 10 mg tablet 10 mg PO HS 02/17/24 06/25/24 History tenofovir disoproxil fumarate 300 300 mg PO HS 02/17/24 06/25/24 History mg tablet tizanidine 6 mg capsule 6 mg PO TID PRN muscle spasms 02/17/24 06/25/24 History tramadol 50 mg tablet 50 mg PO Q6H PRN Pain 02/17/24 06/25/24 History folic acid 1 mg tablet 1 mg PO DAILY 05/02/24 06/25/24 History cholecalciferol (vitamin D3) 25 25 mcg PO DAILY 06/25/24 06/25/24 History mcg (1,000 unit) tablet (Vitamin D3) lorazepam 0.5 mg tablet 0.25 - 5 mg PO Q6H PRN 06/25/24 06/25/24 History Anxiety/Panic/Insomnia ondansetron HCl 8 mg tablet 8 mg PO TID PRN Nausea And Vomiting 06/25/24 06/25/24 History sertraline 50 mg tablet 50 mg PO DAILY 06/25/24 06/25/24 History Patient History Medical History Esophageal cancer reccurence Degenerative joint disease of knee, left History of hepatitis B (2019) Hx of hepatitis C (2019) treated and cleared Chronic back pain 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 Hx of colonoscopy (2022) History of surgery (2019) spermatocele removed, [facility] surgeon "botched" surgery and complications post op including extreme scrotal swelling Hx of removal of cyst fatty cyst at ear canal Hx of shoulder surgery (1970) left arm, while in service Hx of appendectomy (1967) age 12, " on the operating table- addendix burst while they were doing the surgery" required a return to surgery 2 weeks later Family History Sister Breast cancer Brother Cancer Pancreatic cancer Grandmother Colorectal cancer Social History Smoking Status: Current every day smoker Tobacco Type: Cigarettes Cigarettes Per Day: 1 ppd (advised); Second Hand Exposure: Yes; Do You Dip or Chew Tobacco: No; Tobacco Cessation Education Requested by Patient: No 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) Hx Substance Use: Yes Last Used Substance: Days (ago) Last Used Substance Other:: Marijuana Substance Use Type Other:: still uses marijuana Preferred Language: Nicaraguan Communication Ability: Effective Stogy Maker Required: No Beliefs That Will Affect Care: None marital status: Current Living Situation: Spouse current occupational status: retired and disabled How many Children do You have: 3 Other Information That Helps Us Care for You: No Feels Safe at Home: Yes Safety Concerns: Feels Safe At This Time during the past year weight has: decreased > 10 lbs Assistive Devices: Cane Review of Systems Review of Systems: No pertinent ROS positives unless otherwise mentioned in the HPI Physical Exam Physical Exam: Ears: Normal pinna Nose: No external deformity, Right rhinorocket in place with not bleeding. Neck: trachea midline Neuro: Alert and oriented, Moves all 4 extremities, Symmetric and normal facial nerve function Derm: No lesions noted on face or neck Cardiovascular: No JVD Results & Data Vital Signs (Past 12 Hours) Vital Signs Temp Pulse Pulse Resp BP BP Pulse Ox 06/26/24 08:19 37.5 C 95 H 19 139/76 95 06/26/24 07:20 84 06/26/24 05:58 120 H 06/26/24 03:26 36.6 C 112 H 18 138/89 96 06/26/24 00:43 37.5 C 114 H 22 137/88 92 06/26/24 00:26 37.5 C 134 H 22 143/87 H 97 06/26/24 00:23 135 H 06/26/24 00:03 143 H 06/25/24 23:26 37.5 C 144 H 16 112/69 93 06/25/24 23:26 111 H 22 135/86 94 06/25/24 23:12 37.4 C 119 H 22 137/78 92 06/25/24 22:56 37.4 C 126 H 22 94 06/25/24 22:41 37.4 C 132 H 22 138/72 95 06/25/24 22:22 37.5 C 138 H 22 112/69 94 O2 Del Method O2 Flow Rate 06/26/24 08:19 Room Air 06/26/24 07:20 06/26/24 05:58 06/26/24 03:26 Room Air 06/26/24 00:43 06/26/24 00:26 06/26/24 00:23 06/26/24 00:03 06/25/24 23:26 Room Air 06/25/24 23:26 06/25/24 23:12 1 06/25/24 22:56 06/25/24 22:41 06/25/24 22:22 PG Care Time/CCT Total # of Minutes Spent Total Time Spent with Patient: Total time spent is greater than 50% in coordination of care (as documented) at patient's floor/unit and/or counseling patient: Coding Level of Care Code 48519 Inpt Consult Level 1 Diagnoses Recurrent epistaxis R04.0 Smoker F17.200 Stage 3 severe COPD by GOLD classification J44.9 Acute blood loss anemia D62
[2024-06-26] MEDS ORDERED: METOPROLOL SUCC 25MG EXT REL TAB PO SCH (09:00)
[2024-06-26] MEDS: NICOTINE 14 MG/24 HR PATCH TD SCH (09:01)
[2024-06-26] MEDS: FOLIC ACID 1 MG TAB PO SCH (09:02)
[2024-06-26] MEDS: FERROUS SULFATE 325 MG TAB PO SCH (09:02)
[2024-06-26] MEDS: TAMSULOSIN HCL 0.4 MG CAP PO SCH (09:02)
[2024-06-26] MEDS: SERTRALINE HCL 50 MG TABLET PO SCH (09:06)
[2024-06-26] MEDS: dexAMETHasone 6 MG in SYRINGE 0 ML IV ONE (10:06)
--- NOTE | 2024-06-26 11:13 | Anesthesiology Consultation ---
Date of Service June 26, 2024 Assessment & Plan Chart Review Chart Review: Acceptable Risk for Surgery and Patient NOT seen in Pre Admission Testing Consults Requested none ASA ASA4 Proposed Anesthesia Anesthesia Type: General History Surgery Operation Date: 06/26/24 08:20 Proposed Procedures p Endoscopic Control of Epistaxis - John Carr MD Height/Weight Height: 5 ft 7 in Weight: 72.5 kg Allergies Allergy/AdvReac Type Severity Reaction Status Date / Time No Known Drug Allergies Allergy Verified 06/25/24 14:47 Medications Home Medications Medication Instructions Recorded Confirmed Last Taken alfuzosin 10 mg tablet,extended 0 mg PO BID 02/17/24 06/25/24 06/24/24 release 24 hr ferrous sulfate 325 mg (65 mg 325 mg PO DAILY 02/17/24 06/25/24 06/24/24 iron) tablet (Iron (ferrous sulfate)) metoprolol succinate 25 mg 0 mg PO QAM 02/17/24 06/25/24 06/24/24 tablet,extended release 24 hr prednisone 2.5 mg tablet 2.5 - 5 mg PO UD 02/17/24 06/25/24 06/24/24 tadalafil 10 mg tablet 10 mg PO HS 02/17/24 06/25/24 06/24/24 tenofovir disoproxil fumarate 300 300 mg PO HS 02/17/24 06/25/24 06/24/24 mg tablet tizanidine 6 mg capsule 6 mg PO TID PRN muscle spasms 02/17/24 06/25/24 05/07/24 tramadol 50 mg tablet 50 mg PO Q6H PRN Pain 02/17/24 06/25/24 Unknown folic acid 1 mg tablet 1 mg PO DAILY 05/02/24 06/25/24 06/24/24 cholecalciferol (vitamin D3) 25 25 mcg PO DAILY 06/25/24 06/25/24 06/24/24 mcg (1,000 unit) tablet (Vitamin D3) lorazepam 0.5 mg tablet 0.25 - 5 mg PO Q6H PRN 06/25/24 06/25/24 Unknown Anxiety/Panic/Insomnia ondansetron HCl 8 mg tablet 8 mg PO TID PRN Nausea And Vomiting 06/25/24 06/25/24 Unknown sertraline 50 mg tablet 50 mg PO DAILY 06/25/24 06/25/2406/24/25 Active Medications Generic Name Dose Route Start Last Admin Trade Name Arturq PRN Reason Stop Dose Admin Ferrous Sulfate 325 mg 06/26/24 09:00 06/26/24 09:02 Ferrous Sulfate 325 Mg Tab PO 07/26/24 08:59 325 mg DAILY DEVON Administration Folic Acid 1 mg 06/26/24 09:00 06/26/24 09:02 Folic Acid 1 Mg Tab PO 07/26/24 08:59 1 mg DAILY DEVON Administration Lorazepam 0.5 mg 06/25/24 15:34 06/26/24 00:40 Lorazepam 0.5 Mg Tab PO 07/25/24 15:33 0.5 mg Q6H PRN Administration Anxiety/Panic/Insomnia Metoprolol Tartrate 25 mg 06/25/24 16:45 06/26/24 05:59 Metoprolol Tartrate 25 Mg Tab PO 07/25/24 16:44 25 mg Q6 DEVON Administration Miscellaneous 1 each 06/26/24 08:59 06/26/24 09:00 Remove Nicoderm Patch N/A 07/26/24 08:58 Not Given [id number] DEVON Miscellaneous 1 each 06/25/24 16:30 06/26/24 09:11 Tenofovir Disoproxil Fumarate: Order Awaiting Action N/A 07/25/24 16:29 Not Given QS DEVON Nicotine 1 patch 06/26/24 09:00 06/26/24 09:01 Nicotine 14 Mg/24 Hr Patch TD 07/26/24 08:59 Not Given QAM DEVON Sertraline HCl 50 mg 06/26/24 09:00 06/26/24 09:06 Sertraline Hcl 50 Mg Tablet PO 07/26/24 08:59 Not Given DAILY DEVON Tamsulosin HCl 0.4 mg 06/26/24 09:00 06/26/24 09:02 Tamsulosin Hcl 0.4 Mg Cap PO 07/26/24 08:59 0.4 mg DAILY DEVON Administration Protocol Tramadol HCl 50 mg 06/25/24 15:34 06/25/24 16:03 Tramadol Hcl 50 Mg Tablet PO 07/25/24 15:33 50 mg Q6H PRN Administration Pain NPO Date Last Intake of Fluids: 06/25/24 Time Last Intake of Fluids: 22:00 Date Last Intake of Solids: 06/25/24 Time Last Intake of Solids: 18:00 Past Medical History Medical History Esophageal cancer reccurence Degenerative joint disease of knee, left History of hepatitis B (2019) Hx of hepatitis C (2019) treated and cleared Chronic back pain 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 BPH (benign prostatic hyperplasia) COPD (chronic obstructive pulmonary disease) "extremely mild" no symptoms Hx of esophageal malignancy (2022) 3 rounds of chemo, and 4-5 weeks of xrt Cardiac arrhythmia no symptoms, unsure of what type, no facialist- had stress test Hypertension Psoriatic arthritis Rheumatoid arthritis epistaxis anemia due to blood loss Exercise / Class Metabolic Activity III < 4 Walking/Shop/Light housework Past Family History Family History Sister Breast cancer Brother Cancer Pancreatic cancer Grandmother Colorectal cancer Past Surgical History Surgical History Port-A-Cath in place (05/08/24) Access Port Insertion Left Subclavian with Fluoroscopy(Left) - Antonio Hylton, DO Spermatocele (2018) Hx of esophagogastroduodenoscopy 02/2024 [facility] Hx of colonoscopy (2022) History of surgery (2019) spermatocele removed, [facility] surgeon "botched" surgery and complications post op including extreme scrotal swelling Hx of removal of cyst fatty cyst at ear canal Hx of shoulder surgery (1970) left arm, while in service Hx of appendectomy (1967) age 12, " on the operating table- addendix burst while they were doing the surgery" required a return to surgery 2 weeks later Past Anesthesia History No Hx of Anesthesia Complications and No Family Hx of Anesthesia Complications History of PONV No Hx of PONV and No Hx of Motion Sickness Social History Smoking Status: Current every day smoker Smoking cigarettes per day: 1 ppd (advised) Do You Dip or Chew Tobacco: No 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) Hx Substance Use: Yes substance use type: does not use, former substance user, marijuana, crack/cocaine, heroin, amphetamines, opiates, painkillers, inhalants and methamphetamine Substance Use Type Other:: still uses marijuana Last Used Substance: Days (ago) Last Used Substance Other:: Marijuana Physical Exam Vital Signs Last Vital Signs Temp 37 C 06/26/24 11:05 Pulse 99 H 06/26/24 11:05 Resp 16 06/26/24 11:05 BP 136/96 06/26/24 11:05 Pulse Ox 93 06/26/24 11:05 O2 Del Method Room Air 06/26/24 11:05 O2 Flow Rate 1 06/25/24 23:12 Testing Laboratory Results 06/26/24 07:42 06/26/24 07:42 PT 12.5 Seconds (9.0-12.0) H 06/26/24 07:42 INR 1.2 (0.9-1.1) H 06/26/24 07:42 APTT 28 Seconds (21-31) 06/25/24 14:27 Blood Type AB Positive 06/25/24 14:27 Antibody Screen NEGATIVE 06/25/24 14:27 Electrocardiogram Date: 06/25/24 Findings: + AFIB @ (@ 130) Chest X-Ray Date: 05/08/24 Findings: + NAD (port catheter in position in mid SVC) and + atherosclerosis of thoracic aorta
[2024-06-26] MEDS: LACTATED RINGER'S 1,000 ML IV ONE (11:19)
[2024-06-26] MEDS ORDERED: ATROPINE SULFATE 0.1 MG/ML 10ML SYR IV PRN (11:23)
[2024-06-26] MEDS ORDERED: ePHEDrine sulfate 50 MG/ML AMP IV PRN (11:23)
--- NOTE | 2024-06-26 11:31 | History & Physical Bridge Note ---
Date of Service June 26, 2024 History & Physical Bridge Note I have examined the patient, reviewed the History & Physical and in the interval since the performance of the History & Physical I have noted the following changes of clinical significance: no changes noted
[2024-06-26] MEDS ORDERED: fentaNYL citrate PF 100 MCG/2 ML VIAL ONE (11:33)
[2024-06-26] MEDS ORDERED: SUCCINYLCHOLINE CHLORIDE 20 MG/ML 10 ML VIAL IV ONE ×2 (11:33→11:35)
[2024-06-26] MEDS ORDERED: PROPOFOL IV EMULSION 10 MG/ML 20 ML VIAL IV ONE (11:35)
[2024-06-26] MEDS ORDERED: ROCURONIUM BROMIDE 10 MG/ML 5 ML VIAL IV ONE (11:35)
[2024-06-26] MEDS ORDERED: DEXAMETHASONE SOD INJ 4 MG/ML VIAL ONE (11:35)
[2024-06-26] MEDS ORDERED: ONDANSETRON INJ 2 MG/ML 2 ML VIAL ONE (11:35)
[2024-06-26] MEDS ORDERED: LIDOCAINE 2% 2 ML VIAL/AMP(20MG/ML) INFIL ONE (11:35)
[2024-06-26] MEDS: OXYMETAZOLINE 0.05% 30 ML BTL ONE (12:02)
[2024-06-26] MEDS ORDERED: PHENYLEPHRINE 100MCG/ML 5ML SYR ONE (12:06)
[2024-06-26] MEDS: GELATIN SPONGE SZ 100 ONE (12:09)
[2024-06-26] MEDS: BACITRACIN OINT 14 GM TUBE ONE (12:09)
[2024-06-26] MEDS: BUPIVACAINE/EPINEPHRINE 0.25% 1:200,000 30 ML VIAL ONE (12:09)
--- NOTE | 2024-06-26 12:11 | Post Operative Brief Note ---
PG Immediate Post Op with CF Date of Surgery June 26, 2024 Pre & Post Diagnosis Operation Date: 06/26/24 08:20 Pre-Op Diagnosis: Recurrent epistaxis Post-Op Diagnosis: Recurrent epistaxis I identified the patient and participated in the time-out.: No Procedure Operation Date: 06/26/24 08:20 Actual Procedures p Endoscopic Control of Epistaxis(Not Applicable) - John Carr MD Surgeon John Carr MD Desk Top Publisher none Estimated Blood Loss 5 Findings Consistent with Post-Op Diagnosis
--- NOTE | 2024-06-26 12:13 | Operative Report ---
PG Post Operative Report Pre & Post Diagnosis Operation Date: 06/26/24 08:20 Pre-Op Diagnosis: Recurrent epistaxis Post-Op Diagnosis: Recurrent epistaxis I identified the patient and participated in the time-out.: No Procedure Operation Date: 06/26/24 08:20 Actual Procedures p Endoscopic Control of Epistaxis(Not Applicable) - John Carr MD Surgeon John Carr MD Merchandising Internship none Estimated Blood Loss 5 Findings Consistent with Post-Op Diagnosis Specimens none Complications none Description of Procedure The patient was met in the pre-operative holding area where operative consent and medical history were updated. The patient was taken back to the operating room and placed on the table in supine position. General endotracheal anesthesia was induced. The patient was prepped and draped in the normal sterile fashion. The rhinorocket was removed. The septum and turbinate on the right were injected with 5 mLs of 1% Lidocaine with 1:100,000 epinephrine. A zero degree endoscope was then inserted into the right nasal sinus and the middle turbinate was identified followed by the uncinate. There were areas of damage were cauterized with the suction cautery at a setting of 15 to 20. This was followed with afrin soaked pledget packing and repeat cautery for approximately 20 minutes.Nasopore was packed into the nasal cavity to apply some pressure to the septal area that was cauterized. The patient was awakened, extubated and taken to the recovery room in stable condition with no known complications. I attest to the content of the Intraoperative Record and any orders documented therein. Any exceptions are noted below.
[2024-06-26] MEDS ORDERED: PHENYLEPHRINE 1% NA SPR 15 ML BTL NAE PRN (12:14)
[2024-06-26] MEDS ORDERED: MoRPHine SULFATE 4 MG/ML 1 ML CARP\\VIAL IV PRN (12:14)
[2024-06-26] MEDS ORDERED: MoRPHine SULFATE 2 MG/ML CARP IV PRN (12:14)
[2024-06-26] MEDS ORDERED: METOPROLOL TARTRATE 1 MG/ML VIAL IV ONE (12:27)
--- NOTE | 2024-06-26 14:03 | XCELERA ---
[id number]
--- NOTE | 2024-06-26 14:06 | Anesthesiology Progress Note ---
Date of Service June 26, 2024 Anesthesia Post Procedure Vital Signs Vital Signs: Temp Pulse Pulse Resp BP BP Pulse Ox 06/26/24 13:55 106 H 24 102/67 94 06/26/24 13:45 36.4 C L 104 H 26 H 104/70 94 06/26/24 13:35 114 H 24 105/78 96 06/26/24 13:25 115 H 22 105/75 94 06/26/24 13:15 115 H 16 122/71 97 06/26/24 13:14 130 H 26 H 97 06/26/24 13:05 116 H 26 H 154/83 H 97 06/26/24 12:55 36 C L 130 H 20 136/96 98 06/26/24 11:05 37 C 99 H 16 136/96 93 06/26/24 08:19 37.5 C 95 H 19 139/76 95 06/26/24 07:20 84 06/26/24 05:58 120 H 06/26/24 03:26 36.6 C 112 H 18 138/89 96 06/26/24 00:43 37.5 C 114 H 22 137/88 92 06/26/24 00:26 37.5 C 134 H 22 143/87 H 97 06/26/24 00:23 135 H 06/26/24 00:03 143 H 06/25/24 23:26 37.5 C 144 H 16 112/69 93 06/25/24 23:26 111 H 22 135/86 94 06/25/24 23:12 37.4 C 119 H 22 137/78 92 06/25/24 22:56 37.4 C 126 H 22 94 06/25/24 22:41 37.4 C 132 H 22 138/72 95 06/25/24 22:22 37.5 C 138 H 22 112/69 94 06/25/24 19:55 36.4 C L 110 H 18 117/76 94 06/25/24 19:00 36.4 C L 114 H 18 110/59 L 94 06/25/24 18:40 124 H 06/25/24 17:35 36.6 C 124 H 16 110/59 L 95 06/25/24 17:34 36.7 C 122 H 16 98/60 L 96 06/25/24 17:05 36.7 C 110 H 16 105/70 98 06/25/24 16:55 120 H 110/66 06/25/24 16:50 36.4 C L 120 H 18 110/66 94 06/25/24 16:24 36.4 C L 141 H 16 109/61 91 06/25/24 16:23 141 H 109/61 06/25/24 16:20 141 H 109/61 06/25/24 16:05 163 H 118/70 06/25/24 15:35 36.7 C 92 H 18 118/70 96 06/25/24 15:34 06/25/24 14:30 125 H 24 123/79 96 O2 Del Method O2 Flow Rate FiO2 06/26/24 13:55 Oxymask 4 06/26/24 13:45 Oxymask 4 06/26/24 13:35 Oxymask 8 06/26/24 13:25 Oxymask 10 06/26/24 13:15 Oxymask 15 06/26/24 13:14 40 06/26/24 13:05 BiPAP 100 06/26/24 12:55 BiPAP 100 06/26/24 11:05 Room Air 06/26/24 08:19 Room Air 06/26/24 07:20 06/26/24 05:58 06/26/24 03:26 Room Air 06/26/24 00:43 06/26/24 00:26 06/26/24 00:23 06/26/24 00:03 06/25/24 23:26 Room Air 06/25/24 23:26 06/25/24 23:12 1 06/25/24 22:56 06/25/24 22:41 06/25/24 22:22 06/25/24 19:55 Room Air 06/25/24 19:00 06/25/24 18:40 06/25/24 17:35 06/25/24 17:34 1 06/25/24 17:05 1 06/25/24 16:55 06/25/24 16:50 06/25/24 16:24 06/25/24 16:23 06/25/24 16:20 06/25/24 16:05 06/25/24 15:35 Room Air 06/25/24 15:34 Oxymask 1 06/25/24 14:30 Room Air Pain Intensity Throat: Pain Intensity: 8 Transfer of Care Handoff Completed per policy Notes Mental Status: alert / awake / arousable Patient Amnestic to Procedure: Yes Nausea / Vomiting: adequately controlled Pain: adequately controlled Airway Patency, RR, SpO2: stable & adequate BP & HR: stable & adequate Hydration State: stable & adequate Anesthetic Complications: no major complications apparent
[2024-06-26] MEDS: DIGOXIN 0.125 MG TAB PO SCH (15:44)
[2024-06-26 16:06] LABS: Hematocrit (blood only) 30.4 % (42.0-52.0); Hemoglobin 9.5 g/dl (14.0-18.0)
[2024-06-26] MEDS: MAGNESIUM OXIDE 400 MG TAB PO ONE (17:31)
[2024-06-26] MEDS: FUROSEMIDE 20 MG TAB PO ONE (17:32)
[2024-06-26] MEDS: POTASSIUM CHLORIDE CRTAB 20 MEQ TABCR PO STA (17:32)
--- NOTE | 2024-06-26 19:25 | Hospitalist Progress Note ---
Date of Service June 26, 2024 Assessment & Plan (1) Recurrent epistaxis: Plan: 68yo male with COPD, tobacco use, HepB/HepC, and esophageal cancer. He presented on 06/25 for ongoing right-sided epistaxis that began Sunday 06/18. He was seen at [place] that Tuesday 06/20 and had a Rhino Rocket placed, he was then seen by ENT on Wednesday 06/21 and had silver nitrate cautery. Patient was stable over the weekend, but then had recurrent epistaxis 06/25 prompting return to [facility]. Epistaxis caused #2 below prompting 2 units PRBCs since admission. Now s/p endoscopic surgery today by Dr Almeida from ENT to stop the bleeding. Appreciate his assistance. Monitor for recurrence. Diet as tolerated post-surgery. CBC am. (2) Acute blood loss anemia: Plan: 2nd to #1 s/p 2 units PRBCs since admission H/H this afternoon wnl Fe studies/B12/folate noted repeat CBC am (3) Acute systolic (congestive) heart failure: Plan: EF 40-45% on echo today 2nd to a.fib with RVR? 2nd to other factors?? treat the a.fib - currently on metoprolol 25mg q6h; ultimately convert to meto succ suspect some decompensation in setting of PRBCs & rapid a.fib lasix now re-eval tomorrow (4) Esophageal cancer: Plan: follows with [facility] last chemotherapy 06/12/24 (5) Atrial fibrillation with RVR: Plan: improved s/p metoprolol q6h and digoxin load converted to NSR overnight ultimately convert meto tartrate to succinate given reduced LV function will need to decide whether to continue digoxin or stop unfortunately he is currently a very poor candidate for systemic anticoagulation in light of severe epistaxis TSH/K/Mag all wnl (6) History of hepatitis B: Plan: cont Tenofovir (7) COPD (chronic obstructive pulmonary disease): Plan: no exacerbation at this time (8) Rheumatoid arthritis: Plan: steroid dependent on chronic prednisone 7.5mg daily gave dexamethasone for stress dose purposes - 6mg x 1 will do quick taper over next 2-3 days then resume usual dosing (9) Tobacco dependence: Plan: cont nicotine patch Plan VTE PPx: SCDs; hold chemical DVT PPx in the setting of acute blood loss anemia/nosebleeding Admission and Anticipated Discharge Date Admission Date: June 25, 2024 Subjective saw patient post-ENT surgery for right-sided epistaxis since surgery NO recurrent epistaxis he does report some mild shortness of breath tolerating clear liquids since his surgery without nausea/emesis tele - had a.fib overnight, spontaneously converted back to NSR frequent ectopy since conversion Review of Systems Review of Systems: cv - no chest pain or tightness pulm - no cough GI - no abd pain Physical Exam Physical Exam: gen - sitting upright in bed, NAD, pleasant mouth - MMM, poor dentition, ecchymoses posterior throat nose - packing material in right nare, no active bleeding neck - mild JVD just above the clavicle heart - irregular, rate <100, s1 s2, no murmur lungs - mild fine rales bases abd - soft NT ND BS+ ext - pulses b/l feet 2+, no edema Results & Data Results & Data Vital Signs (Past 12 Hours) Vital Signs Temp Pulse Pulse Resp BP Pulse Ox O2 Del Method 06/26/24 16:28 94 H 16 116/72 94 Room Air 06/26/24 15:50 78 18 99/62 L 94 Room Air 06/26/24 15:44 94 H 06/26/24 15:20 78 16 103/65 99 Room Air 06/26/24 14:50 36.4 C L 77 16 96/61 L 96 Room Air 06/26/24 14:20 77 16 94/60 L 94 Oxymask 06/26/24 14:18 36.1 C L 77 19 94/61 L 96 Oxymask 06/26/24 13:55 106 H 24 102/67 94 Oxymask 06/26/24 13:45 36.4 C L 104 H 26 H 104/70 94 Oxymask 06/26/24 13:35 114 H 24 105/78 96 Oxymask 06/26/24 13:25 115 H 22 105/75 94 Oxymask 06/26/24 13:15 115 H 16 122/71 97 Oxymask 06/26/24 13:14 130 H 26 H 97 06/26/24 13:05 116 H 26 H 154/83 H 97 BiPAP 06/26/24 12:55 36 C L 130 H 20 136/96 98 BiPAP 06/26/24 11:05 37 C 99 H 16 136/96 93 Room Air 06/26/24 08:19 37.5 C 95 H 19 139/76 95 Room Air O2 Flow Rate FiO2 06/26/24 16:28 06/26/24 15:50 06/26/24 15:44 06/26/24 15:20 06/26/24 14:50 06/26/24 14:20 2 06/26/24 14:18 4.0 06/26/24 13:55 4 06/26/24 13:45 4 06/26/24 13:35 8 06/26/24 13:25 10 06/26/24 13:15 15 06/26/24 13:14 40 06/26/24 13:05 100 06/26/24 12:55 100 06/26/24 11:05 06/26/24 08:19 Laboratory Results Laboratory Results - last 24 hr 06/25/24 06/25/24 06/26/24 14:27 19:49 01:43 WBC RBC Hgb 7.8 L 8.6 L Hct 24.3 L 27.0 L MCV MCH MCHC RDW Std Deviation RDW Coeff of Latha Plt Count MPV Immature Gran % (Auto) Neut % (Auto) Lymph % (Auto) Tyler % (Auto) Eos % (Auto) Baso % (Auto) Neut # (Auto) Lymph # (Auto) Tyler # (Auto) Eos # (Auto) Baso # (Auto) Immature Gran # (Auto) Absolute Nucleated RBC Nucleated RBC % (auto) Dohle Bodies Polychromasia Anisocytosis PT INR Sodium Potassium Chloride Carbon Dioxide Anion Gap BUN Creatinine Est Cr Clr Drug Dosing eGFR BUN/Creatinine Ratio Glucose Calcium Ferritin 678.5 H Vitamin B12 > 1500 H Folate 22.06 Blood Type AB Positive Antibody Screen NEGATIVE Crossmatch See Detail 06/26/24 06/26/24 07:42 15:45 WBC 17.40 H RBC 3.22 L Hgb 8.7 L 9.5 L Hct 27.3 L 30.4 L MCV 84.8 MCH 27.0 MCHC 31.9 L RDW Std Deviation 59.8 H RDW Coeff of Latha 20.6 H Plt Count 120 L MPV 10.0 Immature Gran % (Auto) 3.1 Neut % (Auto) 80.8 Lymph % (Auto) 8.6 Tyler % (Auto) 7.2 Eos % (Auto) 0.1 Baso % (Auto) 0.2 Neut # (Auto) 14.06 H Lymph # (Auto) 1.49 Tyler # (Auto) 1.25 H Eos # (Auto) 0.02 Baso # (Auto) 0.04 Immature Gran # (Auto) 0.54 H Absolute Nucleated RBC 0.15 H Nucleated RBC % (auto) 0.9 Dohle Bodies 1+ Polychromasia 1+ Anisocytosis Present PT 12.5 H INR 1.2 H Sodium 136 Potassium 3.6 Chloride 103 Carbon Dioxide 30 Anion Gap 3 BUN 16 Creatinine 0.83 Est Cr Clr Drug Dosing 77.4 eGFR 94.15 BUN/Creatinine Ratio 19.3 Glucose 99 Calcium 7.7 L Ferritin Vitamin B12 Folate Blood Type Antibody Screen Crossmatch PG Care Time/CCT Total # of Minutes Spent Total Time Spent with Patient: Total time spent is greater than 50% in coordination of care (as documented) at patient's floor/unit and/or counseling patient: Coding Level of Care Code 99517 SUB INP/OBS CARE 3/50MIN Diagnoses Recurrent epistaxis R04.0 Acute blood loss anemia D62 Acute systolic (congestive) heart failure I50.21 Esophageal cancer C15.9 Atrial fibrillation with RVR I48.91 History of hepatitis B Z86.19 COPD (chronic obstructive pulmonary disease) J44.9 Rheumatoid arthritis M06.9 Tobacco dependence F17.200
[2024-06-26 19:42] VITALS: RESP 18
[2024-06-27 06:25] LABS: Hematocrit (blood only) 28.5 % (42.0-52.0); Hemoglobin 9.2 g/dl (14.0-18.0); Mean Corpuscular Hemoglobin 27.3 pg (25.0-34.0); Mean Corpuscular Hgb Conc 32.3 g/dL (32.0-36.0); Mean Corpuscular Volume 84.6 fL (80.0-100.0); Mean Platelet Volume 10.3 fL (9.4-12.4); Nucleated RBC # (auto) 0.06 K/uL (0.00-0.12); Nucleated RBC % (auto) 0.3 %; Platelet Count 163 K/uL (130-400); RDW Coefficient of Variation 21.5 % (11.5-14.5); RDW Standard Deviation 60.4 fL (36.4-46.3); Red Blood Count 3.37 M/uL (4.70-6.10); White Blood Count 20.58 K/ul (4.8-10.8)
[2024-06-27 06:57] LABS: BUN Creatinine Ratio 23.2 (10-20); Calcium 8.2 mg/dl (8.6-10.3); Creatinine Clr Calc Pharmacy 68.7 ml/min
[2024-06-27 07:57] VITALS: TEMP 97.9; O2SAT 96
[2024-06-27] MEDS: tiZANidine HCL 4 MG TABLET PO PRN (08:45)
[2024-06-27] MEDS: predniSONE 20 MG TAB PO STA (09:33)
--- NOTE | 2024-06-27 09:33 | Electrocardiogram Report ---
Test Reason : Blood Pressure : */* mmHG Vent. Rate : 141 BPM Atrial Rate : * BPM P-R Int : * ms QRS Dur : 88 ms QT Int : 280 ms P-R-T Axes : * 61 58 degrees QTcB Int : 428 ms Atrial fibrillation with rapid ventricular response Nonspecific T wave abnormality Abnormal ECG When compared with ECG of 02-May-2024 11:27, Atrial fibrillation has replaced Sinus rhythm Vent. rate has increased by 69 bpm Confirmed by Gary Menendez ([id number]) on 06/27/2024 9:33:11 AM Referred By: REFERRED SELF Confirmed By: Gary Menendez
--- NOTE | 2024-06-27 09:34 | Electrocardiogram Report ---
Test Reason : Blood Pressure : */* mmHG Vent. Rate : 118 BPM Atrial Rate : * BPM P-R Int : * ms QRS Dur : 88 ms QT Int : 318 ms P-R-T Axes : * 63 64 degrees QTcB Int : 445 ms Sinus tachycardia with frequent , and consecutive Premature atrial complexes Abnormal ECG When compared with ECG of 25-Jun-2024 14:01, (unconfirmed) Sinus tachycardia now present Confirmed by Gary Menendez ([id number]) on 06/27/2024 9:34:11 AM Referred By: REFERRED SELF Confirmed By: Gary Menendez
--- NOTE | 2024-06-27 09:35 | Electrocardiogram Report ---
Test Reason : Blood Pressure : */* mmHG Vent. Rate : 130 BPM Atrial Rate : 166 BPM P-R Int : 200 ms QRS Dur : 88 ms QT Int : 284 ms P-R-T Axes : 75 73 58 degrees QTcB Int : 417 ms Sinus tachycardia with frequent , and consecutive Premature atrial complexes Otherwise normal ECG When compared with ECG of 25-Jun-2024 14:39, (unconfirmed) No significant change Confirmed by Gary Menendez ([id number]) on 06/27/2024 9:34:47 AM Referred By: REFERRED SELF Confirmed By: Gary Menendez
[2024-06-27] MEDS: METOPROLOL SUCC 25MG EXT REL TAB PO SCH (11:58)
[2024-06-27 12:39] VITALS: BP 116/72; PULSE 51
--- NOTE | 2024-06-27 12:40 | Discharge Summary ---
Discharge Summary Date of Service date of admission - June 25, 2024 date of discharge - June 27, 2024 Principal Dx & Hospital Course #1 = Principal Diagnosis (1) Recurrent epistaxis: 68yo male with COPD, tobacco use, HepB/HepC, and esophageal cancer. He presented on 06/25 for ongoing right-sided epistaxis that began Sunday 06/18. He was seen at [place] that Tuesday 06/20 and had a Rhino Rocket placed, he was then seen by ENT on Wednesday 06/21 in the office and had silver nitrate cautery. Patient was stable over the weekend, but then had recurrent epistaxis 06/25 prompting return to [facility]. Epistaxis caused #2 below prompting 2 units PRBCs since admission. Hemoglobin at discharge was 9.2. Seen by [facility], Dr John Carr, who performed endoscopic surgery to stop the bleeding. Post-op the patient had no further epistaxis, tolerated a diet, and otherwise did well. The packing in the right nare will dissolve with time and does not require any intervention. He was advised to follow-up with Dr Carr in the clinic in 3-4 weeks time, sooner if any recurrent epistaxis. Further, he was asked to use afrin nasal spray - 2 sprays in the right nare BID x 3 days only. (2) Acute blood loss anemia: 2nd to #1 s/p 2 units PRBCs while hospitalized Fe studies/B12/folate acceptable Lowest hemoglobin 7.5 Discharge hemoglobin 9.2 (3) Acute systolic (congestive) heart failure: EF 40-45% on echo this admission 2nd to a.fib with RVR? 2nd to other factors? a.fib was treated with metoprolol he ultimately converted back to NSR suspect he had some minor decompensation in the setting of PRBCs & rapid a.fib lasix was given while here at discharge he appeared compensated meds at discharge - * metoprolol succinate 37.5mg daily * ideally patient is on Entresto or low-dose LESLIE/ARB in the future - defer to [facility] we discussed his CHF in detail discussed fluid restriction, salt restriction, daily weights CHF instructions were given as well he will be set up with [facility]ology for surveillance (4) Esophageal cancer: [facility] last chemotherapy 06/12/24 (5) Atrial fibrillation with RVR: presented with rapid a.fib on hospital day #1 was placed on metoprolol tartrate q6h and given a digoxin load TSH level was wnl fortunately he spontaneously converted back to NSR while here ultimately converted meto tartrate back to meto succinate given the reduced LV function digoxin was not continued at discharge unfortunately he is currently a very poor candidate for systemic anticoagulation in light of severe epistaxis did discuss with him & his spouse the risk of stroke with a.fib and the typical recommendation of anticoagulation they understand that starting such right now could cause recurrent severe epistaxis echocardiogram showed depressed LV function - see above at discharge he will take metoprolol succinate 37.5mg daily he will be set up with [facility] for ongoing management (6) History of hepatitis B: cont Tenofovir (7) COPD (chronic obstructive pulmonary disease): no exacerbation while here (8) Rheumatoid arthritis: 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 He presented on 06/25 for ongoing nosebleed that originally started on Sunday 06/18. He was seen at [place] that Tuesday 06/20 and had a Rhino Rocket placed, he was then seen by ENT on Thursday 06/22 and had silver nitrate without it stopping. Patient was fine over the weekend, however he sneezed upon waking this morning, and nosebleed returned. In terms of symptoms, he endorses a "pounding" headache secondary to the nosebleed, as well as dizziness when walking around. [facility] and is currently undergoing chemotherapy for his esophageal cancer; he reports his last chemotherapy session was on 06/12. Patient did not take his regular morning medicine today; no recent change in medications. He manages his own medicine at home. He takes tramadol and gabapentin daily for lower back pain and ankle pain secondary to rheumatoid arthritis. He does have a history of blood transfusion in March 2023. He is not currently on blood thinners. He has been told he had an "irregular" heartbeat in the past, but is unsure if he has any history of atrial fibrillation. No PMH of GI bleeds or bleeding disorders to his knowledge. Patient is a [employer]. He is a current everyday tobacco cigarette smoker; 1 PPD. He denies chewing tobacco or recent alcohol use. Patient is tachycardic at 125 bpm at time admission; vitals otherwise stable. ED course: 1 unit PRBCs ordered for transfusion NSS 100 mL IV ROS: Patient endorses nosebleed, dizziness, cold intolerance, headache, and melena. Patient denies fever, chills, night-sweats, rashes, bruises, chest pain, chest palpitations, SOB, pleuritic CP, abdominal pain, N/V, burning with urination, or BRB in the urine/stool. Discharge Exam gen - sitting in bed, NAD, pleasant mouth - MMM, poor dentition, ecchymoses posterior throat nose - minimal amount of packing material in right nare, no active bleeding neck - no JVD heart - irregular (extra beats), rate <100, s1 s2, no murmur lungs - CTA b/l, no rales, no wheeze abd - soft NT ND BS+ ext - pulses b/l feet 2+, no edema Discharge Plan Discharge Items Patient Disposition: Home - Self-Care Reason For Visit: EPISTAXIS REQUIRING BLOOD TRANSFUSION Discharge Diagnosis: 1. right-sided epistaxis (severe nosebleed) - resolved, surgery by Dr John Carr 2. atrial fibrillation 3. cardiomyopathy / congestive heart failure - ejection fraction 40-45%; etiology uncertain 4. acute blood loss anemia due to #1 - need for 2 units of blood; discharge hemoglobin 9.2 5. esophageal cancer Activity: As commented below Activity Comment: light activities only at this time Non-emergency contact: Primary Care Provider Call non-emergency contact if: you have any medication questions, your symptoms worsen and you have a fever Follow-up/Referrals: Francesco Gonzalez DO [Physician] - 07/05/24 9:00 am (1-2 weeks; new kurtfib, new CHF Follow up scheduled with Dr. Gonzalez -cardiology scheduled 07/05/24 at 8:45 arrival, 9:00 appointment) Lauri López MD [Primary Care Provider] - 06/29/24 1:00 pm (Hospital follow up scheduled 06/29/24 at 12:45 arrival and 1:[address] Crow) John Carr MD [Physician] - 07/23/24 1:15 pm (3-4 weeks. ENT follow up with Dr. Carr scheduled 07/23/24 at 1:15) Diet: Heart Healthy Fluids: 1800ml (7 cups) Addtl Attending Provider Instructions: Mr Escalante, You were hospitalized due to severe nosebleeding from the right nostril. Dr Carr from ENT saw you in consult and took you to the operating room to perform surgery to stop the nosebleeding. Since the surgery you have done well with no recurrent bleeding. Due to the severe nosebleeding you required 2 units of blood. At time of admission you had evidence of atrial fibrillation. This is an irregular heart rhythm that originates from the top part of your heart. See handouts. The atrial fibrillation resolved and you are back in normal rhythm. I am concerned you may be having atrial fibrillation at home as well, however. As part of your testing we did an echocardiogram of your heart. This showed the heart muscle is weak with ejection fraction of 40-45%. It is possible that atrial fibrillation made the heart muscle weak. Weakness of the heart is called cardiomyopathy / congestive heart failure. Also see handouts. I am going to recommend that you see [facility] shortly after discharge to follow the cardiomyopathy and atrial fibrillation. Recommendations - 1. nose care - * the material in the right nose will simply dissolve with time; do not remove or pick at it * please use [id number] Afrin nasal spray - 2 sprays in the RIGHT NOSTRIL only twice daily x 3 days then STOP; start this tonight * do not use saline sprays or any other medicine in the nose at this time * if you have to blow your nose do so as gently as possibly * see Dr Carr in 3-4 weeks (sooner if you have recurrent problems) * please avoid aspirin, motrin, ibuprofen, etc. * ok to take tylenol as needed for aches/pains 2. for atrial fibrillation & cardiomyopathy - * check your weight every morning; rapid weight gains may indicate fluid build- up in your body due to your heart conditions * keep a log of your weights; show them to the sheet metal worker * INCREASE your metoprolol to 37.5mg (1.5 tablets) once daily; start this on 06/28/24 * watch your salt intake (no more than 2000mg in 24 hours) * watch your fluid intake (no more than about 1800ml in 24 hours) 3. resume your prednisone upon return home today (you typically take 2.5mg in the afternoon - please do that upon getting home today) 4. keep any previously scheduled appointments with your cancer doctor as previous Return to [facility] if - * you have fever over 100 degrees * you have recurrent nosebleeds * you are dizzy or lightheaded * you have shortness of breath * you have chest pains * you have rapid heart beating/fluttering/palpitations * any other concerns It was our pleasure to care for you! Pending Studies at Discharge: No Stand-Alone Forms: My [facility], Smoking Cessation Medications and DC Order Prescriptions: New metoprolol succinate 25 mg tablet extended release 24 hr 37.5 mg PO DAILY Qty: 45 5RF Continued folic acid 1 mg tablet 1 mg PO DAILY ondansetron HCl 8 mg tablet 8 mg PO TID PRN (Reason: Nausea And Vomiting) lorazepam 0.5 mg tablet 0.25 - 5 mg PO Q6H PRN (Reason: Anxiety/Panic/Insomnia) sertraline 50 mg tablet 50 mg PO DAILY cholecalciferol (vitamin D3) [Vitamin D3] 25 mcg (1,000 unit) Tablet 25 mcg PO DAILY tramadol 50 mg Tablet 50 mg PO Q6H PRN (Reason: Pain) prednisone 2.5 mg Tablet 2.5 - 5 mg PO UD Rx Instructions: Take 5mg by mouth in the morning and 2.5mg by mouth at bedtime ferrous sulfate [Iron (ferrous sulfate)] 325 mg (65 mg iron) Tablet 325 mg PO DAILY tenofovir disoproxil fumarate 300 mg Tablet 300 mg PO HS tadalafil 10 mg Tablet 10 mg PO HS tizanidine 6 mg Capsule 6 mg PO TID PRN (Reason: muscle spasms) Changed alfuzosin 10 mg Tablet Extended Release 24 Hr 10 mg PO DAILY Qty: 0 0RF Rx Instructions: The recommended maximum dose is 10mg once daily. I would recommend against taking this medicine twice daily due to potential for side effects. Discontinued metoprolol succinate 25 mg Tablet Extended Release 24 Hr 0 mg PO QAM Rx Instructions: Per patient, was unaware it was supposed to be 12.5mg daily. Has been taking 25mg by mouth once daily. Discharge Orders: Discharge Order (Routine); Ordered 06/27/24 Ordered By: Brent Raines/Other Patient Handouts: What Is Heart Failure, AFib Dc, Cardiomyopathy Dc, AFib Preventing Stroke Admission Data Admit Date/Time: 06/25/24 14:23 Attending Provider: Brent Bradford Admit Provider: Brent Stewart Primary Care Provider: Lauri López Other Providers: Kelsie Cox; John Carr Other Interventions: Discharge Summary Assessment (RN) Last Done: 06/27/24 12:37 Hospital Stay Data Consultations Oncology Otolaryngology Procedures Performed Operation Date: 06/26/24 08:20 Actual Procedures p Endoscopic Control of Epistaxis - John Carr MD Echocardiogram - 2 units PRBCs Pending Results Patient Have Any Pending Studies at Discharge: No Discharge Instructions Given to Patient (Per Discharging Provider) Mr Escalante, Jose were hospitalized due to severe nosebleeding from the right nostril. Dr Carr from ENT saw you in consult and took you to the operating room to perform surgery to stop the nosebleeding. Since the surgery you have done well with no recurrent bleeding. Due to the severe nosebleeding you required 2 units of blood. At time of admission you had evidence of atrial fibrillation. This is an irregular heart rhythm that originates from the top part of your heart. See handouts. The atrial fibrillation resolved and you are back in normal rhythm. I am concerned you may be having atrial fibrillation at home as well, however. As part of your testing we did an echocardiogram of your heart. This showed the heart muscle is weak with ejection fraction of 40-45%. It is possible that atrial fibrillation made the heart muscle weak. Weakness of the heart is called cardiomyopathy / congestive heart failure. Also see handouts. I am going to recommend that you see [facility] shortly after discharge to follow the cardiomyopathy and atrial fibrillation. Recommendations - 1. nose care - * the material in the right nose will simply dissolve with time; do not remove or pick at it * please use [id number] Afrin nasal spray - 2 sprays in the RIGHT NOSTRIL only twice daily x 3 days then STOP; start this tonight * do not use saline sprays or any other medicine in the nose at this time * if you have to blow your nose do so as gently as possibly * see Dr Carr in 3-4 weeks (sooner if you have recurrent problems) * please avoid aspirin, motrin, ibuprofen, etc. * ok to take tylenol as needed for aches/pains 2. for atrial fibrillation & cardiomyopathy - * check your weight every morning; rapid weight gains may indicate fluid build- up in your body due to your heart conditions * keep a log of your weights; show them to the sheet metal worker * INCREASE your metoprolol to 37.5mg (1.5 tablets) once daily; start this on 06/28/24 * watch your salt intake (no more than 2000mg in 24 hours) * watch your fluid intake (no more than about 1800ml in 24 hours) 3. resume your prednisone upon return home today (you typically take 2.5mg in the afternoon - please do that upon getting home today) 4. keep any previously scheduled appointments with your cancer doctor as previous Return to [facility] if - * you have fever over 100 degrees * you have recurrent nosebleeds * you are dizzy or lightheaded * you have shortness of breath * you have chest pains * you have rapid heart beating/fluttering/palpitations * any other concerns It was our pleasure to care for you! Total Time Total Time Spent Total Time Spent (In Minutes): 45 Coding Level of Care Code 07949 INP/OBS DISCH >30 MIN Diagnoses Recurrent epistaxis R04.0 Acute blood loss anemia D62 Acute systolic (congestive) heart failure I50.21 Esophageal cancer C15.9 Atrial fibrillation with RVR I48.91 History of hepatitis B Z86.19 COPD (chronic obstructive pulmonary disease) J44.9 Rheumatoid arthritis M06.9 Tobacco dependence F17.200
== END 2024-06-27 13:01 | disposition home or self-care (01) | DRG 150 ==
LOC: ED 09:46 → 2S 14:23 → INTOOBSV 14:23 → SUATTDRO 14:23 → 2S 15:06